=== PATIENT | male | born 1935 | race Caucasian/White ===

== ENCOUNTER 2020-06-19 12:02 | Outpatient (CLI) | payer MEDICARE, OTHER | END 2020-06-19 23:59 | disposition home or self-care (01) | LOC: CVU 12:02 | PROVIDERS: ATTEND Surgery | DX: I83.93 Asymptomatic varicose veins of bilateral lower extremities (principal); R22.43 Localized swelling, mass and lump, lower limb, bilateral; I67.2 Cerebral atherosclerosis; N52.01 Erectile dysfunction due to arterial insufficiency | CPT/HCPCS: 93922; 93925; 93970 ==

== ENCOUNTER 2020-11-16 08:56 | Outpatient (CLI) | payer OTHER, MEDICARE | END 2020-11-16 23:59 | disposition home or self-care (01) | LOC: PETCFH 08:56 | PROVIDERS: ATTEND Internal Medicine Infectious Disease | DX: C4A.9 Merkel cell carcinoma, unspecified (principal); M47.816 Spondylosis without myelopathy or radiculopathy, lumbar region; K57.90 Diverticulosis of intestine, part unspecified, without perforation or abscess without bleeding; J98.11 Atelectasis; R59.1 Generalized enlarged lymph nodes | CPT/HCPCS: 78816; A9552 ==